=== PATIENT | female | born 1965 | race African-American/Black ===

== ENCOUNTER 2017-06-27 12:16 | Outpatient (CLI) | payer OTHER ==
--- NOTE | 2017-06-27 13:03 | XRay Report ---
XRAY CHEST TWO VIEWS: 06/27/17 12:16:00 CLINICAL: Cough. COMPARISON: The FINDINGS: Normal heart and pulmonary vasculature. The lungs are normally expanded and clear.The bones and soft tissues are unremarkable. IMPRESSION: Normal chest.
== END 2017-06-27 12:17 | disposition home or self-care (01) ==
LOC: SPVIMAG 12:16
PROVIDERS: ATTEND Family Medicine
DX: R05 Cough (principal); R63.4 Abnormal weight loss
CPT/HCPCS: 71046